=== PATIENT | male | born 1975 | race Caucasian/White ===

== ENCOUNTER 2016-11-26 10:30 | Emergency (ER) | payer OTHER ==
[2016-11-26 10:39] VITALS: BP 158/113
--- NOTE | 2016-11-26 11:16 | ER Document Report ---
ED Medical Screen (RME) - General Chief Complaint: Back Pain Stated Complaint: BACK PAIN Time Seen by Provider: 11/26/16 10:41 Mode of Arrival: Wheelchair Information source: Patient Notes: Patient is a 41yo male who presents with severe back pain x2 days. Pt states that he was walking when he tripped, caught himself, but felt a "pop, burn" sensation to the lower back. The numbness/tingling and pain travel from his low back to his LE's b/l. Pt states that he has numbness/tingling from his hips to his toes b/l. Pt has difficulty with ambulation, sitting, laying, and standing. All positions worsen his pain. No position improves his pain. He has not had any medications for his symptoms. No loss of control of b/b or urinary retention. Denies any fever, CP, sob, dyspnea, abd pain, n/v/d, dysuria , or hematuria. Denies rash or bruising. Pt has a h/o Chronic back pain s/p time in the . He denies ever having any CT/MRI performed of his low back. Consult Dr. Newberry and he recommended L-spine MRI. I have treated and performed a rapid initial assessment of this patient. A comprehensive ED assessment and evaluation of the patient, analysis of test results and completion of medical decision making process will be conducted by additional ED providers. TRAVEL OUTSIDE OF THE [place] IN LAST 30 DAYS: No - Related Data Allergies/Adverse Reactions: bacitracin [From Neosporin] Allergy (Verified 11/26/16 10:35) bacitracin zinc [From Neosporin] Allergy (Verified 11/26/16 10:35) gramicidin D [From Neosporin] Allergy (Verified 11/26/16 10:35) neomycin sulfate [From Neosporin] Allergy (Verified 11/26/16 10:35) penicillin G [Penicillin G] Allergy (Verified 11/26/16 10:35) polymyxin B [From Neosporin] Allergy (Verified 11/26/16 10:35) polymyxin B sulfate [From Neosporin] Allergy (Verified 11/26/16 10:35) Past Medical History Renal/ Medical History: Denies: Hx Peritoneal Dialysis - Immunizations Hx Diphtheria, Pertussis, Tetanus Vaccination: Yes Review of Systems - Review of Systems Constitutional: See HPI Cardiovascular: No symptoms reported Respiratory: No symptoms reported Gastrointestinal: No symptoms reported Genitourinary: No symptoms reported Male Genitourinary: No symptoms reported Musculoskeletal: See HPI Neurological/Psychological: See HPI Physical Exam - Vital signs Vitals: Temp Pulse Resp BP Pulse Ox 98.3 F 67 20 158/113 H 97 11/26/16 10:38 11/26/16 10:38 11/26/16 10:38 11/26/16 10:38 11/26/16 10:38 - Back Back: Tender Course - Vital Signs Vital signs: Temp Pulse Resp BP Pulse Ox 98.3 F 67 20 158/113 H 97 11/26/16 10:38 11/26/16 10:38 11/26/16 10:38 11/26/16 10:38 11/26/16 10:38
[2016-11-26] MEDS ORDERED: KETOROLAC TROMETHAMINE INJ/PF 30 MG/1 ML SDV IV ONE (11:24)
[2016-11-26 12:05] LABS: ABSOLUTE BASOPHILS # (AUTO) 0.1 10^3/uL (0.0-0.2); ABSOLUTE EOSINOPHILS # (AUTO) 0.1 10^3/uL (0.0-0.6); ABSOLUTE LYMPHOCYTES (AUTO) 3.3 10^3/uL (0.5-4.7); ABSOLUTE MONOCYTES (AUTO) 0.5 10^3/uL (0.1-1.4); ABSOLUTE NEUT (AUTO) 7.5 10^3/uL (1.7-8.2); BASOPHILS % (AUTO) 0.5 % (0-2); EOSINOPHILS % (AUTO) 0.9 % (0-6); HEMATOCRIT 49.4 % (37.9-51.0); HEMOGLOBIN 16.4 g/dL (13.5-17.0); HGB HCT DIFFERENCE -0.2; LYMPHOCYTES % (AUTO) 28.9 % (13-45); MEAN CORPUSCULAR HGB CONC 33.2 g/dL (32.0-36.0); MEAN CORPUSCULAR VOLUME 87 fl (80-97); MONOCYTES % (AUTO) 4.6 % (3-13); RED BLOOD COUNT 5.66 10^6/uL (4.35-5.55); RED CELL DISTRIBUTION WIDTH 13.4 % (11.5-14.0); SEGMENTED NEUTROPHILS % (AUTO) 65.1 % (42-78); WHITE BLOOD COUNT 11.5 10^3/uL (4.0-10.5)
[2016-11-26 12:51] LABS: ALANINE AMINOTRANSFERASE 19 U/L (21-72); ALBUMIN 4.5 g/dL (3.5-5.0); ALKALINE PHOSPHATASE 80 U/L (38-126); ANION GAP 9 (5-19); ASPARTATE AMINO TRANSFERASE 27 U/L (17-59); BILIRUBIN,DIRECT 0.3 mg/dL (0.0-0.4); BILIRUBIN,TOTAL 0.9 mg/dL (0.2-1.3); BLOOD UREA NITROGEN 14 mg/dL (7-20); CALCIUM 9.7 mg/dL (8.4-10.2); CARBON DIOXIDE 29 mmol/L (22-30); CHLORIDE 103 mmol/L (98-107); CREATININE RESULT 0.88 mg/dL (0.52-1.25); GLUCOSE 87 mg/dL (75-110); POTASSIUM 4.1 mmol/L (3.6-5.0); SODIUM 140.6 mmol/L (137-145); TOTAL PROTEIN 8.2 g/dL (6.3-8.2)
--- NOTE | 2016-11-26 13:28 | RADIOLOGY REPORT (SQ) ---
EXAM DESCRIPTION: MRI LUMBAR SPINE WITHOUT COMPLETED DATE/TIME: 11/26/2016 1:06 pm REASON FOR STUDY: Low back pain COMPARISON: None. TECHNIQUE: Sagittal and Axial imaging includes T1, T2, STIR and gradient echo sequences. Coronal T2/ HASTE imaging. LIMITATIONS: Patient motion. FINDINGS: VISUALIZED UPPER ABDOMEN: Limited evaluation. No acute or suspicious findings suggested. SEGMENTATION: No transitional anatomy. The lowest well-developed disc space is labeled L5-S1. ALIGNMENT: Anatomic. VERTEBRAE: Intact. BONE MARROW: Normal. No marrow replacement or reactive changes. DISC SIGNAL: Desiccation multiple levels. POSTERIOR ELEMENTS: Generally intact. No pars defect evident. HARDWARE: None in the spine. CORD AND CONUS: Normal in size and signal intensity. Conus at the appropriate level. SOFT TISSUES: No aortic aneurysm seen. No bulky retroperitoneal adenopathy or mass. No paraspinal mas s or fluid. L1-L2: No significant spinal stenosis or exit foraminal stenosis. L2-L3: Ventral impression on the thecal sac due to small right paracentral annular fissure. L3-L4: Ventral impression on thecal sac due to small right paracentral annular fissure. L4-L5: More pronounced ventral impression on the thecal sac due to small central disc protrusion. L5-S1: Ventral impression on the thecal sac due to small central annular fissure. LOWER THORACIC: Incompletely imaged. No stenosis seen. SACRUM: Visualized upper sacrum intact. OTHER: No other significant findings. IMPRESSION: Several annular fissures. Small disc herniation L4-5. TECHNICAL DOCUMENTATION: JOB ID: [id number] [employer]- All Rights Reserved
[2016-11-26] MEDS ORDERED: ONDANSETRON 4 MG TAB.RAPDIS PO ONE (14:21)
[2016-11-26] MEDS ORDERED: OXYCODONE-ACETAMINOPHEN 5-325 MG TABLET PO ONE (14:21)
--- NOTE | 2016-11-26 14:22 | ER Document Report ---
ED General - General Mode of Arrival: Wheelchair TRAVEL OUTSIDE OF THE [place] IN LAST 30 DAYS: No - HPI Onset: Other Quality of pain: Achy, Pressure, Sharp Severity: Severe Pain Level: 5 Associated symptoms: None Exacerbated by: Supine, Sitting, Standing, Movement, Walking Relieved by: Denies Similar symptoms previously: Yes Recently seen / treated by doctor: No <SANAM CARRANZA - Last Filed: 11/26/16 20:45> <OTTO SHIELDS - Last Filed: 12/01/16 03:46> - General Chief Complaint: Back Pain Stated Complaint: BACK PAIN Time Seen by Provider: 11/26/16 10:41 Notes: Patient presents to the emergency department with c/osevere back pain x2 days. Pt reports two days ago he was walking when he tripped, caught himself, but felt a "pop, burn" sensation to the lower back. The numbness/tingling and pain travel from his low back to his bilateral lower extremities. Pt c/o pain with moving, walking, sitting, any position. Reports he is severe pain no matter what position. Denies urinary or bowel incontinence/retention, denies sexual dysfunction. Reports OTC medications not helping. Denies fever, CP, sob, dyspnea, abd pain, n/v/d, dysuria, or hematuria. Denies rash or recent insect bites. Reports history of Chronic back pain but denies pain this bad. Denies cancer, denies hx of IV drug use. Has not had steroid injections. [facility]. (SANAM CARRANZA) - Related Data Allergies/Adverse Reactions: bacitracin [From Neosporin] Allergy (Verified 11/26/16 10:35) bacitracin zinc [From Neosporin] Allergy (Verified 11/26/16 10:35) gramicidin D [From Neosporin] Allergy (Verified 11/26/16 10:35) neomycin sulfate [From Neosporin] Allergy (Verified 11/26/16 10:35) penicillin G [Penicillin G] Allergy (Verified 11/26/16 10:35) polymyxin B [From Neosporin] Allergy (Verified 11/26/16 10:35) polymyxin B sulfate [From Neosporin] Allergy (Verified 11/26/16 10:35) Past Medical History - General Information source: Patient - Social History Smoking Status: Current Every Day Smoker Cigarette use (# per day): Yes Frequency of alcohol use: None Drug Abuse: None Lives with: Family Family History: Reviewed & Not Pertinent Patient has suicidal ideation: No Patient has homicidal ideation: No Renal/ Medical History: Denies: Hx Peritoneal Dialysis Traumatic Medical History: Reports: Other - chronic back pain Surgical Hx: Negative - Immunizations Hx Diphtheria, Pertussis, Tetanus Vaccination: Yes <SANAM CARRANZA - Last Filed: 11/26/16 20:45> Review of Systems <SANAM CARRANZA - Last Filed: 11/26/16 20:45> <OTTO SHIELDS - Last Filed: 12/01/16 03:46> - Review of Systems Notes: - Review HPI for review of systems., All other systems negative (SANAM CARRANZA) Physical Exam <SANAM CARRANZA - Last Filed: 11/26/16 20:45> <OTTO SHIELDS - Last Filed: 12/01/16 03:46> - Vital signs Vitals: Temp Pulse Resp BP Pulse Ox 98.3 F 67 20 158/113 H 97 11/26/16 10:38 11/26/16 10:38 11/26/16 10:38 11/26/16 10:38 11/26/16 10:38 - Notes Notes: PHYSICAL EXAMINATION: GENERAL: calm at rest, expresses severe pain with any movement HEAD: Atraumatic, normocephalic. EYES: Pupils equal round and reactive to light, extraocular movements intact, sclera anicteric, conjunctiva are normal. ENT: nares patent, oropharynx clear without exudates. Moist mucous membranes. NECK: Normal range of motion, supple without lymphadenopathy LUNGS: CTAB and equal. No wheezes rales or rhonchi. HEART: Regular rate and rhythm without murmurs BACK: No obvious deformity no step-off no erythema no warmth no swelling good distal movement and sensation ABDOMEN: Soft, no tenderness. No guarding, no rebound EXTREMITIES: Normal range of motion, no pitting edema. No cyanosis. NEUROLOGICAL: Cranial nerves grossly intact. Normal sensory/motor PSYCH: Normal mood, normal affect. SKIN: Warm, Dry, normal turgor, no rashes or lesions noted (SANAM CARRANZA) Course - Laboratory Result Diagrams: 11/26/16 11:42 11/26/16 11:42 - Diagnostic Test Radiology reviewed: Image reviewed, Reports reviewed - mri showed herniated disc <SANAM CARRANZA - Last Filed: 11/26/16 20:45> - Laboratory Result Diagrams: 11/26/16 11:42 11/26/16 11:42 <OTTO SHIELDS - Last Filed: 12/01/16 03:46> - Re-evaluation Re-evalutation: 11/26/[address] shields, advised pain medications, patient to fu with pcp. pt was instructed on MRI, instructed on treatment plan. He reports [facility], he was given a copy of his MRI. (SANAM CARRANZA) - Vital Signs Vital signs: Temp Pulse Resp BP Pulse Ox 98.3 F 67 20 158/113 H 97 11/26/16 10:38 11/26/16 10:38 11/26/16 10:38 11/26/16 10:38 11/26/16 10:38 - Laboratory Laboratory results interpreted by me: 11/26/16 11/26/16 11/26/16 11:42 11:42 13:58 WBC 11.5 H RBC 5.66 H ALT 19 L Urine Ketones 25 H Urine Urobilinogen 2.0 H Discharge <SANAM CARRANZA - Last Filed: 11/26/16 20:45> <OTTO SHIELDS - Last Filed: 12/01/16 03:46> - Discharge Clinical Impression: Elevated blood pressure reading Back pain Qualifiers: Back pain location: low back pain Chronicity: acute Back pain laterality: midline Sciatica presence: unspecified whether sciatica present Qualified Code(s ): M54.5 - Low back pain Herniated disc Qualifiers: Spinal region: lumbar Qualified Code(s): M51.26 - Other intervertebral disc displacement, lumbar region Condition: Stable Disposition: HOME, SELF-CARE Instructions: Low Back Pain ([facility]), Herniated Disc ([facility]), Oral Narcotic Medication ([facility]), Anti-Inflammatory Medication ([facility]) Additional Instructions: *You have been evaluated for back pain, herniated disc *Take medication as prescribed *Rest/Ice packs *Follow up with a primary care provider for referral as indicated to water pollution specialist *Return to ED for worsening condition, changes, needs Monitor your blood pressure. Your blood pressure was elevated today. This may be because you were anxious, in pain or because you need medication. It is important to follow up with your primary care provider for full evaluation. Prescriptions: Naproxen 500 mg PO BID #20 tablet Oxycodone HCl/Acetaminophen [Percocet 5-325 mg Tablet] 1 - 2 tab PO ASDIR PRN # 20 tablet PRN Reason: Forms: Elevated Blood Pressure, Return to Work
[2016-11-26 14:33] LABS: APPEARANCE,URINE CLEAR; BILIRUBIN,URINE NEGATIVE (NEGATIVE); GLUCOSE, URINE NEGATIVE (NEGATIVE); KETONES,URINE 25 mg/dL (NEGATIVE)
[2016-11-26 14:34] LABS: LEUKOCYTE ESTERASE,URINE NEGATIVE (NEGATIVE); NITRITE,URINE NEGATIVE (NEGATIVE); PROTEIN,URINE NEGATIVE (NEGATIVE); RBC,URINE NONE SEEN /HPF; URINE SPECIFIC GRAVITY 1.026; WBC,URINE NONE SEEN /HPF
[2016-11-26 14:57] LABS: URINE BARBITURATES SCREEN NEGATIVE; URINE METHADONE SCREEN NEGATIVE; URINE OPIATES LOW NEGATIVE; URINE PHENCYCLIDINE SCREEN NEGATIVE
== END 2016-11-26 15:03 | disposition home or self-care (01) ==
LOC: ER 10:30
DX: R03.0 Elevated blood-pressure reading, without diagnosis of hypertension (principal); G89.29 Other chronic pain; M54.5 Low back pain; M51.26 Other intervertebral disc displacement, lumbar region; R20.0 Anesthesia of skin; F17.210 Nicotine dependence, cigarettes, uncomplicated; Z88.0 Allergy status to penicillin; Z88.3 Allergy status to other anti-infective agents
CPT/HCPCS: 99284; 96374; 36415; 85025; 80053; 81001; 80307; 72148; S0119; J1885

== ENCOUNTER 2016-11-27 07:48 | Emergency (ER) | payer OTHER ==
[2016-11-27] MEDS ORDERED: MORPHINE SULFATE 10 MG/ML INJ IV ONE (08:23)
[2016-11-27] MEDS ORDERED: METHYLPREDNISOLONE INJ 125 MG/2 ML SDV IV ONE (08:24)
--- NOTE | 2016-11-27 08:26 | ER Document Report ---
ED General Pain - General Chief Complaint: Low Back Pain Stated Complaint: BACK PAIN Time Seen by Provider: 11/27/16 08:09 Mode of Arrival: Ambulatory Information source: Patient Notes: Patient is a 41-year-old male who presents to the ER today for the second time in 2 days for low back pain after he tripped and felt a pop in his low back 3 days ago. Patient does have history of chronic back pain, but states that this is different. He admits to some tingling in his right foot, but denies numbness. He did get naproxen and Percocet filled yesterday that he was prescribed from the emergency department. He says that they are not helping. He denies any bowel or bladder incontinence, sexual dysfunction, history of IV drug use, history of cancer, history of high blood pressure, any injury since 3 days ago, fever, chills. TRAVEL OUTSIDE OF THE [place] IN LAST 30 DAYS: No - Related Data Allergies/Adverse Reactions: bacitracin [From Neosporin] Allergy (Verified 11/26/16 10:35) bacitracin zinc [From Neosporin] Allergy (Verified 11/26/16 10:35) gramicidin D [From Neosporin] Allergy (Verified 11/26/16 10:35) neomycin sulfate [From Neosporin] Allergy (Verified 11/26/16 10:35) penicillin G [Penicillin G] Allergy (Verified 11/26/16 10:35) polymyxin B [From Neosporin] Allergy (Verified 11/26/16 10:35) polymyxin B sulfate [From Neosporin] Allergy (Verified 11/26/16 10:35) Past Medical History - General Information source: Patient - Social History Smoking Status: Current Every Day Smoker Family History: Reviewed & Not Pertinent Patient has suicidal ideation: No Patient has homicidal ideation: No Renal/ Medical History: Denies: Hx Peritoneal Dialysis - Immunizations Hx Diphtheria, Pertussis, Tetanus Vaccination: Yes Review of Systems - Review of Systems Constitutional: No symptoms reported EENT: No symptoms reported Cardiovascular: No symptoms reported Respiratory: No symptoms reported Gastrointestinal: No symptoms reported Genitourinary: No symptoms reported Male Genitourinary: No symptoms reported Musculoskeletal: See HPI Skin: No symptoms reported Hematologic/Lymphatic: No symptoms reported Neurological/Psychological: No symptoms reported Physical Exam - Vital signs Vitals: Temp Pulse Resp BP Pulse Ox 97.4 F 77 20 143/82 H 100 11/27/16 08:18 11/27/16 08:18 11/27/16 08:18 11/27/16 08:18 11/27/16 08:18 - Notes Notes: PHYSICAL EXAMINATION: GENERAL: uncomfortable, laying very still, but in no acute distress. HEAD: Atraumatic, normocephalic. EYES: Pupils equal round and reactive to light, extraocular movements intact, sclera anicteric, conjunctiva are normal. NECK: Normal range of motion, supple without lymphadenopathy LUNGS: CTAB and equal. No wheezes rales or rhonchi. HEART: Regular rate and rhythm without murmurs ABDOMEN: Soft, no tenderness. No guarding, no rebound BACK: lumbar vertebral tenderness, decreased ROM due to pain GI/: no CVA tenderness, normal rectal tone EXTREMITIES: straight leg test positive for pain in low back, good and equal pulses bilaterally, Normal range of motion, no pitting edema. No cyanosis. NEUROLOGICAL: Cranial nerves grossly intact. Normal sensory/motor exams. PSYCH: anxious SKIN: Warm, Dry, normal turgor, no rashes or lesions noted, skin exam normal today Course - Re-evaluation Re-evalutation: 11/27/16 10:09 pt was just seeen here yesterday and received MRI, was diagnosed with herniated disc in lumbar spine, sent home with percocet and naproxen which he states are not helping. He wants something to help with "inflammation." I did give him IV steroids here and will send him home with prednisone. I will also give him lidoderm patches and advise him on heat and ice. I have considered osteomyelitis, spinal epidural abscess, fracture, cord compression, cancer, AAA , retroperitoneal bleed, spinal epidural hematoma, and see no evidence to continue evaluation for these pathologies. - Vital Signs Vital signs: Temp Pulse Resp BP Pulse Ox 97.4 F 77 20 143/82 H 100 11/27/16 08:23 11/27/16 08:23 11/27/16 08:23 11/27/16 08:23 11/27/16 08:23 Discharge - Discharge Clinical Impression: Back pain Qualifiers: Back pain location: low back pain Chronicity: acute Back pain laterality: midline Sciatica presence: unspecified whether sciatica present Qualified Code(s ): M54.5 - Low back pain Herniated disc Qualifiers: Spinal region: lumbar Qualified Code(s): M51.26 - Other intervertebral disc displacement, lumbar region Condition: Stable Disposition: HOME, SELF-CARE Instructions: Low Back Pain ([facility]), Ice Packs ([facility]), Warm Packs ([facility]) Additional Instructions: Return immediately for any new or worsening symptoms. Follow up with ortho, call tomorrow to make followup appointment. Orthopedic Office [facility] [address] [place] [address] phone: [phone] Prescriptions: Lidocaine [Lidoderm 5% (700 mg) Transdermal Patch] 1 patch TP DAILY #10 adh..patch Prednisone [Deltasone 20 mg Tablet] 3 tab PO DAILY 10 Days Forms: Return to Work Referrals: ABBY RICCI MD [Primary Care Provider] - Follow up as needed
[2016-11-27] MEDS ORDERED: SENNOSIDES/DOCUSATE 8.6-50 MG 1 EACH TABLET PO ONE (09:17)
[2016-11-27] MEDS ORDERED: LIDOCAINE 5% (700 MG) TRANSDERMAL ADH..PATCH TP ONE (10:36)
[2016-11-27 11:00] VITALS: BP 126/73
== END 2016-11-27 11:02 | disposition home or self-care (01) ==
LOC: ER 07:48
DX: M51.26 Other intervertebral disc displacement, lumbar region (principal); M54.5 Low back pain; M54.9 Dorsalgia, unspecified; R20.0 Anesthesia of skin; F17.200 Nicotine dependence, unspecified, uncomplicated
CPT/HCPCS: 99283; 96374; 96375; J2930; J2270

== ENCOUNTER 2019-01-27 13:08 | Emergency (ER) | payer OTHER ==
--- NOTE | 2019-01-27 13:31 | ER Document Report ---
Addendum entered and electronically signed by JANUARY RODRIGUEZ MD 01/28/19 12:03: Discharge - Discharge Clinical Impression: Suicidal ideation, Depression Condition: Stable Disposition: HOME, SELF-CARE Additional Instructions: You have been evaluated both medical and behavioral teams and been deemed appropriate for discharge. Please follow-up with your outpatient mental health provider both in medication management and therapeutic services. Please continue using your support network and positive coping skills. [facility]. You have been provided a one-week prescription for both your home medication of Zyprexa 2.5mg twice daily; please take as directed. DEPRESSION: Your evaluation reveals that you have mental depression. While symptoms may be vague, they often include disturbance of sleep, fatigue, loss of appetite, and general loss of interest in life. While depression may be a side effect of drugs, or a reaction to a major change in your life, many cases have no known cause. If depression is acute, and related to a major loss in your life, you can expect it to clear completely with time. If you have been depressed a long nila e, are prone to repeated bouts of depression or low mood, or have been thinking of suicide, get help. Depression can be treated with anti-depressant medication and counselling. Long-term depression will often take a few weeks to clear, even with appropriate medication. Follow-up care is important. SUICIDAL IDEATION: Suicidal ideation is a common medical term for thoughts about suicide, which may be as detailed as a formulated plan, without the suicidal act itself. Although most people who undergo suicidal ideation do not commit suicide, some go on to make suicide attempts. The range of suicidal ideation varies greatly from fleeting to detailed planning, role playing, and unsuccessful attempts. While thoughts about suicide are common, most people do not carry out serious actions to commit suicide. Based upon your evaluation and discussion with you, we do not believe you are currently at risk to act upon your thoughts of suicide. You have agreed to return to the Emergency Department, at any time, if you feel inclined to act upon your suicidal thoughts. FOLLOW-UP CARE: If you have been referred to a physician for follow-up care, call the physicians office for an appointment as you were instructed or within the next two days. If you experience worsening or a significant change in your symptoms, notify the physician immediately or return to the Emergency Department at any time for re-evaluation. Prescriptions: Olanzapine [Zyprexa 2.5 Mg Tablet] 2.5 mg PO BID #14 tablet Referrals: [facility] [Provider Group] - Follow up as needed ABBY RICCI MD [NO LOCAL MD] - Follow up as needed Addendum entered and electronically signed by JUNE AVELAR LCSWA 01/28/19 11:45: Discharge - Discharge Clinical Impression: Suicidal ideation, Depression Condition: Stable Disposition: HOME, SELF-CARE Additional Instructions: You have been evaluated both medical and behavioral teams and been deemed appropriate for discharge. Please follow-up with your outpatient mental health provider both in medication management and therapeutic services. Please continue using your support network and positive coping skills. Please follow- up with the local [facility] to continue setting up therapeutic services. You have been provided a one-week prescription for both your home medication of Zyprexa 2.5mg twice daily; please take as directed. DEPRESSION: Your evaluation reveals that you have mental depression. While symptoms may be vague, they often include disturbance of sleep, fatigue, loss of appetite, and general loss of interest in life. While depression may be a side effect of drugs, or a reaction to a major change in your life, many cases have no known cause. If depression is acute, and related to a major loss in your life, you can expect it to clear completely with time. If you have been depressed a long time, are prone to repeated bouts of depression or low mood, or have been thinking of suicide, get help. Depression can be treated with anti-depressant medication and counselling. Long-term depression will often take a few weeks to clear, even with appropriate medication. Follow-up care is important. SUICIDAL IDEATION: Suicidal ideation is a common medical term for thoughts about suicide, which may be as detailed as a formulated plan, without the suicidal act itself. Although most people who undergo suicidal ideation do not commit suicide, some go on to make suicide attempts. The range of suicidal ideation varies greatly from fleeting to detailed planning, role playing, and unsuccessful attempts. While thoughts about suicide are common, most people do not carry out serious actions to commit suicide. Based upon your evaluation and discussion with you, we do not believe you are currently at risk to act upon your thoughts of suicide. You have agreed to return to the Emergency Department, at any time, if you feel inclined to act upon your suicidal thoughts. FOLLOW-UP CARE: If you have been referred to a physician for follow-up care, call the physicians office for an appointment as you were instructed or within the next two days. If you experience worsening or a significant change in your symptoms, notify the physician immediately or return to the Emergency Department at any time for re-evaluation. Referrals: [facility] [Provider Group] - Follow up as needed ABBY RICCI MD [NO LOCAL MD] - Follow up as needed Addendum entered and electronically signed by JUNE AVELAR LCSWA 01/28/19 11:44: Discharge - Discharge Clinical Impression: Suicidal ideation, Depression Condition: Stable Disposition: HOME, SELF-CARE Additional Instructions: You have been evaluated both medical and behavioral teams and been deemed appropriate for discharge. Please follow-up with your outpatient mental health provider both in medication management and therapeutic services. Please continue using your support network and positive coping skills. Please follow- up with the local [facility] to continue setting up therapeutic services. You have been provided a one-week prescription for both your home medications of Zyprexa and Paxil; please take as directed. DEPRESSION: Your evaluation reveals that you have mental depression. While symptoms may be vague, they often include disturbance of sleep, fatigue, loss of appetite, and general loss of interest in life. While depression may be a side effect of drugs, or a reaction to a major change in your life, many cases have no known cause. If depression is acute, and related to a major loss in your life, you can expect it to clear completely with time. If you have been depressed a long time, are prone to repeated bouts of depression or low mood, or have been thinking of suicide, get help. Depression can be treated with anti-depressant medication and counselling. Long-term depression will often take a few weeks to clear, even with appropriate medication. Follow-up care is important. SUICIDAL IDEATION: Suicidal ideation is a common medical term for thoughts about suicide, which may be as detailed as a formulated plan, without the suicidal act itself. Although most people who undergo suicidal ideation do not commit suicide, some go on to make suicide attempts. The range of suicidal ideation varies greatly from fleeting to detailed planning, role playing, and unsuccessful attempts. While thoughts about suicide are common, most people do not carry out serious actions to commit suicide. Based upon your evaluation and discussion with you, we do not believe you are currently at risk to act upon your thoughts of suicide. You have agreed to return to the Emergency Department, at any time, if you feel inclined to act upon your suicidal thoughts. FOLLOW-UP CARE: If you have been referred to a physician for follow-up care, call the physicians office for an appointment as you were instructed or within the next two days. If you experience worsening or a significant change in your symptoms, notify the physician immediately or return to the Emergency Department at any time for re-evaluation. Referrals: ABBY RICCI MD [NO LOCAL MD] - Follow up as needed [facility] [Provider Group] - Follow up as needed Original Note: ED General - General Chief Complaint: Suicidal Ideation Stated Complaint: IVC WITH PAPERS Time Seen by Provider: 01/27/19 13:16 Primary Care Provider: ABBY RICCI MD [NO LOCAL MD] - Follow up as needed TRAVEL OUTSIDE OF THE [place] IN LAST 30 DAYS: No - HPI Notes: Patient is a 43-year-old male with a history of depression who presents to the emergency department for evaluation under an IVC order. He really does not want to get the details with me. He states the last several years have been "very hard." He is currently unemployed. He is not in a relationship. He has chronic back pain issues. He has been referred to pain management, but was dismissed secondary to marijuana in his urine drug screen. The patient states that he is currently suicidal. He has tried to both shoot himself as well as overdose in the past. He states he actually took "a bunch of pills" last week. He states there was no effect from that other than vomiting. He was unsucc essful in shooting himself because the gun jammed. He denies any homicidal ideation. No visual or auditory hallucination. He [facility] 2 [facility]. He believes that 1 of them is olanzapine, 1 is Paxil, and one is a vitamin of some sort. Otherwise, the patient states he has had a diminished appetite. He is lost weight over the last several months. He states he feels worse now than he did prior to arrival. - Related Data Allergies/Adverse Reactions: bacitracin [From Neosporin] Allergy (Verified 11/26/16 10:35) bacitracin zinc [From Neosporin] Allergy (Verified 11/26/16 10:35) gramicidin D [From Neosporin] Allergy (Verified 11/26/16 10:35) neomycin sulfate [From Neosporin] Allergy (Verified 11/26/16 10:35) penicillin G [Penicillin G] Allergy (Verified 11/26/16 10:35) polymyxin B [From Neosporin] Allergy (Verified 11/26/16 10:35) polymyxin B sulfate [From Neosporin] Allergy (Verified 11/26/16 10:35) Past Medical History - General Information source: Patient - Social History Smoking Status: Current Every Day Smoker Frequency of alcohol use: Rare Drug Abuse: Marijuana Family History: Reviewed & Not Pertinent Renal/ Medical History: Denies: Hx Peritoneal Dialysis Musculoskeletal Medical History: Reports Other - Lumbar disc herniation Psychiatric Medical History: Reports: Hx Depression - Immunizations Hx Diphtheria, Pertussis, Tetanus Vaccination: Yes Review of Systems - Review of Systems Constitutional: No symptoms reported EENT: No symptoms reported Cardiovascular: No symptoms reported Respiratory: No symptoms reported Physical Exam - Notes Notes: This is a 43-year-old male who appears his stated age, in no acute distress. He has a flat depressed affect with diminished eye contact, but cooperative with examiner. Vital signs reviewed, please refer to chart. Head is normocephalic, atraumatic. Pupils equal round, reactive to light. Neck is supple without meningismus. Heart is regular rate and rhythm. Lungs are clear to auscultation bilaterally. Abdomen is soft, nontender, normoactive bowel sounds throughout. Extremities without cyanosis, clubbing. Posterior calves are nontender. Peripheral pulses are equal. Skin is warm and dry. Patient is awake, alert, neurological exam is nonfocal. Course - Re-evaluation Re-evalutation: 01/27/19 13:30 Patient presents emergency department for evaluation. He is brought in by the Emergency Response Officer's office. He is currently IVCD. Laboratory investigations ordered. Once medically cleared, psychiatric evaluation to take place. This patient is currently suicidal. He does have the means to carry this out. Agree with IVC. 01/27/19 14:37 I was notified by psych that the patient was actually [facility]. He was brought in here for evaluation. I have no reason to suspect any medical abnormalities. He actually already has a bed waiting for him in [place]. Again patient has no major medical issues, no abnormal vital signs, not expecting any significant problems. Medically cleared for transport. - Laboratory Result Diagrams: 01/27/19 13:58 01/27/19 13:58 Laboratory results interpreted by me: 01/27/19 13:58 Salicylates < 1.0 L Acetaminophen < 10 L - EKG Interpretation by Me Additional EKG results interpreted by me: 01/27/19 14:46 Sinus bradycardia. Right axis deviation. No acute ST changes concerning for ischemia or infarction. No old studies available for comparison. Discharge - Discharge Clinical Impression: Suicidal ideation, Depression Condition: Stable Disposition: PSYCH HOSP/UNIT Referrals: ABBY RICCI MD [NO LOCAL MD] - Follow up as needed
[2019-01-27 14:14] LABS: ABSOLUTE BASOPHILS # (AUTO) 0.1 10^3/uL (0.0-0.2); ABSOLUTE EOSINOPHILS # (AUTO) 0.1 10^3/uL (0.0-0.6); ABSOLUTE LYMPHOCYTES (AUTO) 2.9 10^3/uL (0.5-4.7); ABSOLUTE MONOCYTES (AUTO) 0.4 10^3/uL (0.1-1.4); ABSOLUTE NEUT (AUTO) 3.8 10^3/uL (1.7-8.2); EOSINOPHILS % (AUTO) 1.7 % (0-6); HEMATOCRIT 45.1 % (37.9-51.0); HEMOGLOBIN 15.6 g/dL (13.5-17.0); LYMPHOCYTES % (AUTO) 40.3 % (13-45); MEAN CORPUSCULAR HEMOGLOBIN 29.7 pg (27.0-33.4); MEAN CORPUSCULAR HGB CONC 34.6 g/dL (32.0-36.0); MEAN CORPUSCULAR VOLUME 86 fl (80-97); MONOCYTES % (AUTO) 5.2 % (3-13); PLATELET COUNT 258 10^3/uL (150-450); RED BLOOD COUNT 5.26 10^6/uL (4.35-5.55); SEGMENTED NEUTROPHILS % (AUTO) 51.8 % (42-78); TOTAL CELLS COUNTED % (AUTO) 100 %; WHITE BLOOD COUNT 7.3 10^3/uL (4.0-10.5)
[2019-01-27 14:19] LABS: APPEARANCE,URINE CLEAR; BILIRUBIN,URINE NEGATIVE (NEGATIVE); COLOR,URINE YELLOW; GLUCOSE, URINE NEGATIVE (NEGATIVE); KETONES,URINE NEGATIVE (NEGATIVE); LEUKOCYTE ESTERASE,URINE NEGATIVE (NEGATIVE); NITRITE,URINE NEGATIVE (NEGATIVE); PROTEIN,URINE NEGATIVE (NEGATIVE); URINE SPECIFIC GRAVITY 1.013; UROBILINOGEN,URINE NEGATIVE mg/dL (<2.0)
[2019-01-27 14:38] LABS: ALBUMIN 4.7 g/dL (3.5-5.0); ALKALINE PHOSPHATASE 70 U/L (38-126); ANION GAP 9 (5-19); ASPARTATE AMINO TRANSFERASE 23 U/L (17-59); BILIRUBIN,DIRECT 0.3 mg/dL (0.0-0.4); BILIRUBIN,TOTAL 0.6 mg/dL (0.2-1.3); BLOOD UREA NITROGEN 13 mg/dL (7-20); CARBON DIOXIDE 30 mmol/L (22-30); CHLORIDE 103 mmol/L (98-107); GLUCOSE 85 mg/dL (75-110); POTASSIUM 4.3 mmol/L (3.6-5.0); URINE AMPHETAMINES SCREEN NEGATIVE; URINE BARBITURATES SCREEN NEGATIVE; URINE BENZODIAZEPINES SCREEN NEGATIVE; URINE COCAINE SCREEN NEGATIVE; URINE MARIJUANA (THC) SCREEN UNCONFIRMED POSITIVE; URINE METHADONE SCREEN NEGATIVE; URINE PHENCYCLIDINE SCREEN NEGATIVE
[2019-01-27 14:40] LABS: ACETAMINOPHEN < 10 ug/mL (10-30); ALCOHOL < 10 mg/dL (NONE DETECTED); SALICYLATE < 1.0 mg/dL (2.0-20.0)
[2019-01-27] MEDS ORDERED: NICOTINE 21 MG/24 HR PATCH.TD24 TD ONE (15:33)
--- NOTE | 2019-01-27 16:04 | PSYCHOLOGICAL NOTE ---
Psych Note - Psych Note Date seen by psych provider: 01/27/19 Time seen by psych provider: 15:10 Psych Note: Reason for consult: IVC Consent permissions: Patient's adult daughter at bedside per patient's request Patient arrived to [facility] via [facility] department under IVC paperwork. [facility], Dr. Damon.. Dr. Donlad placed patient on full IVC with request to place an inpatient psychiatric treatment. Patient reportedly overdosed on multiple pills which resulted in him vomiting them up. He has demonstrated a downward spiral with depression as evidenced by isolating himself in his home parental patient has not left his home in over a week), unable to function for day-to-day tasks, and attempted suicide. Patient currently is demonstrating little insight into his current situation requesting to be able to leave because he has "things to do." While patient is compliant with requests and does sit on his bed patient does demonstrate psychomotor agitation with constant shifting and movement. Patient reports being in the room and here at [facility] ED is making him worse. When process was explained to the patient patient requests his daughter to drive him to the [facility] facility. When it was explained that that is not possible, the patient stated that he had some "difficulties" in the transportation with the line tender [employer] stating it took "a couple of them to bring me in." Patient is alert and orientated to person, place, time and circumstance. Mood is anxious with congruent affect. Patient confirms suicidal ideation with recent attempt at overdose. Patient denies homicidal ideation delusions are abs ent behaviors congruent with an intact reality based presentation i.e. organized linear thought process. Eye contact is fair. Conversational speech is overall within normal rate, tone and prosody. Intellectual abilities appear to be within the average range. Attention and concentration is fair. Insight, judgment, impulse control is poor. Major depressive disorder; Recurrent [facility] by the [facility] No medication recommendations at this time Impression\\Plan: Patient is recommended for continued IVC.
--- NOTE | 2019-01-27 19:02 | EKG REPORT ---
SEVERITY:- OTHERWISE NORMAL ECG - SINUS RHYTHM RIGHT AXIS DEVIATION : Confirmed by: Tomer Zimmerman MD 27-Jan-2019 19:01:07
[2019-01-28 02:42] VITALS: BP 141/85
--- NOTE | 2019-01-28 10:49 | ER Document Report ---
Doctor's Note Notes: 01/28/19 10:48 I have evaluated this pt. this am and he has no c/o at this time. He feels all of his needs are being met and his physical exam is normal. He is awaiting disposition per mental health.
== END 2019-01-28 12:21 | disposition home or self-care (01) ==
LOC: ER 13:08
DX: R45.851 Suicidal ideations (principal); F32.9 Major depressive disorder, single episode, unspecified; Z79.899 Other long term (current) drug therapy; F12.10 Cannabis abuse, uncomplicated; F17.200 Nicotine dependence, unspecified, uncomplicated; M54.9 Dorsalgia, unspecified; G89.29 Other chronic pain; Z56.0 Unemployment, unspecified; R63.0 Anorexia; R63.4 Abnormal weight loss; Z88.1 Allergy status to other antibiotic agents; Z88.3 Allergy status to other anti-infective agents; Z88.0 Allergy status to penicillin
CPT/HCPCS: 36415; 80053; 80307; 81001; 85025; 93005; 93010; 99285

== ENCOUNTER 2019-04-08 07:31 | Emergency (ER) | payer OTHER ==
[2019-04-08] MEDS ORDERED: KETOROLAC TROMETHAMINE INJ/PF 30 MG/1 ML SDV IM ONE (09:07)
--- NOTE | 2019-04-08 09:16 | ER Document Report ---
HPI - HPI Time Seen by Provider: 04/08/19 08:26 Pain Level: 4 Context: Patient is a 43-year-old male who presents to the emergency department with a chief complaint of left shoulder pain. Patient reports about a week and a half ago he fell and landed on his left forearm. Patient reports when he landed on his left forearm, his arm was lifted above his shoulder and he heard a pop. Patient reports he has been using Flexeril and naproxen which he is prescribed for his chronic back pain since then has not been helping. Patient reports he will follow-up with the [place] clinic but wanted to get evaluated quickly by the emergency department. Patient reports it feels like a constant aching around his entire left shoulder. Patient is concerned for a possible rotator cuff injury. Patient reports the pain is worse at night, worse with direct pressure, reaching, lifting, pushing and pulling. Patient reports he has attempted to keep the shoulder moving to prevent stiffness. - MUSCULOSKELETAL Musculoskeletal: REPORTS: Extremity pain - L shoulder Past Medical History - General Information source: Patient - Social History Smoking Status: Current Every Day Smoker Chew tobacco use (# tins/day): No Frequency of alcohol use: None Drug Abuse: None Lives with: Family Family History: Reviewed & Not Pertinent Patient has suicidal ideation: No Patient has homicidal ideation: No - Past Medical History Cardiac Medical History: Reports: None Pulmonary Medical History: Reports: None EENT Medical History: Reports: None Neurological Medical History: Reports: None Endocrine Medical History: Reports: None Renal/ Medical History: Reports: None. Denies: Hx Peritoneal Dialysis Malignancy Medical History: Reports None GI Medical History: Reports: None Musculoskeletal Medical History: Reports Other - Chronic back pain; on flexeril and naproxen Skin Medical History: Reports None Psychiatric Medical History: Reports: Hx Depression - Immunizations Hx Diphtheria, Pertussis, Tetanus Vaccination: Yes Vertical Provider Document - CONSTITUTIONAL Agree With Documented VS: Yes Exam Limitations: No Limitations General Appearance: Mild Distress - INFECTION CONTROL TRAVEL OUTSIDE OF THE [place] IN LAST 30 DAYS: No - HEENT HEENT: Atraumatic, Normal ENT Exam, Normocephalic - NECK Neck: Normal Inspection - RESPIRATORY Respiratory: Breath Sounds Normal, No Respiratory Distress - CARDIOVASCULAR Cardiovascular: Regular Rate, Regular Rhythm - GI/ABDOMEN Gastrointestinal: Abdomen Soft, Abdomen Non-Tender - BACK Back: Normal Inspection - MUSCULOSKELETAL/EXTREMETIES Notes: Patient has tenderness to palpation to the anterior, lateral and posterior aspect of the left shoulder. Patient is limited range of motion to the left shoulder; patient is able to lift his arm to the level of his shoulder but he reports that any further he develops pain. Patient has a strong palpable left brachial and radial pulse. Patient is able to move his left shoulder joint but reports significant pain when he attempts to externally rotate or internally rotate his arm. No obvious erythema, swelling or deformity to the left shoulder. - NEURO Level of Consciousness: Awake, Alert, Appropriate - DERM Integumentary: Warm, Dry, No Rash Course - Vital Signs Vital signs: Temp Pulse Resp BP Pulse Ox 97.8 F 59 L 18 148/86 H 100 04/08/19 07:38 04/08/19 07:38 04/08/19 07:38 04/08/19 07:38 04/08/19 07:38 - Diagnostic Test Radiology reviewed: Reports reviewed Radiology results interpreted by me: 04/08/19 10:08 Shoulder X-Ray 04/08/19 08:37 IMPRESSION: NEGATIVE STUDY OF THE LEFT SHOULDER. NO RADIOGRAPHIC EVIDENCE OF ACUTE INJURY. Discharge - Discharge Clinical Impression: Injury of left shoulder Qualifiers: Encounter type: initial encounter Qualified Code(s): S49.92XA - Unspecified injury of left shoulder and upper arm, initial encounter Condition: Stable Disposition: HOME, SELF-CARE Additional Instructions: Today you are seen in the emergency department for left shoulder pain. The x- ray was negative for any acute bony abnormality such as a fracture dislocation. You could potentially have a partial tear of the rotator cuff. If you develop severe pain that is not controlled with your medication, increased numbness, or loss of complete function of the left arm you need to seek medical attention immediately. [facility]. Use the sling for comfort. Please remove your arm from the sling multiple times per day and do range of motion exercises with the shoulder to help prevent frozen shoulder. Shoulder Injury You have injured your shoulder. This usually results from stretching or tearing of the tendons during trauma. Time and protection are required in order to heal properly. Many injuries are quite disabling, and should be taken seriously. Initial treatment includes cold packs and a sling to rest the shoulder. The physician has assessed the seriousness of your injury, and has outlined a treatment plan. Understand that this treatment may change, depending on how you progress. If a re-examination was recommended, it is important that you follow up as instructed. Some shoulder injuries (such as partial tear of the rotator cuff) are only suspected after you've failed to improve. Call us if there's severe pain, numbness, or loss of function. [facility]errals: [facility] [Primary Care Provider[facility] - Follow up as needed NANCY BE MD [ACTIVE PROVISIONAL STAFF] - Follow up as needed MONIK HUSTON MD [ACTIVE STAFF] - Follow up as needed BOZENA KHAN DO [ACTIVE STAFF] - Follow up as needed
--- NOTE | 2019-04-08 10:07 | RADIOLOGY REPORT (SQ) ---
EXAM DESCRIPTION: SHOULDER LEFT 2 OR MORE VIEWS COMPLETED DATE/TIME: 04/08/2019 9:15 am REASON FOR STUDY: left shoulder pain, fall x 1 week COMPARISON: None. NUMBER OF VIEWS: Three views. TECHNIQUE: Internal rotation, external rotation, and Y view images acquired of the left shoulder. LIMITATIONS: None. FINDINGS: MINERALIZATION: Normal. BONES: No acute fracture. No worrisome bone lesions. JOINTS: No glenohumeral dislocation. No acromioclavicular joint widening. VISUALIZED LUNGS AND RIBS: No pneumothorax. No rib fracture. SOFT TISSUES: No radiopaque foreign body. OTHER: No other significant finding. IMPRESSION: NEGATIVE STUDY OF THE LEFT SHOULDER. NO RADIOGRAPHIC EVIDENCE OF ACUTE INJURY. TECHNICAL DOCUMENTATION: JOB ID: [id number] [employer]- All Rights Reserved Reading location - IP/workstation name: [email or web address]
[2019-04-08] MEDS ORDERED: HYDROCODONE/ACETAMINOPHEN 5-325 MG (6 TAB/ER DISP) PO PRN (10:11)
[2019-04-08 10:24] VITALS: BP 142/80
== END 2019-04-08 10:20 | disposition home or self-care (01) ==
LOC: ER 07:31
DX: S49.92XA Unspecified injury of left shoulder and upper arm, initial encounter (principal); M25.512 Pain in left shoulder; W19.XXXA Unspecified fall, initial encounter; F17.200 Nicotine dependence, unspecified, uncomplicated
CPT/HCPCS: 99283; 96374; 73030; J1885

== ENCOUNTER 2019-06-04 06:14 | Emergency (ER) | payer OTHER ==
--- NOTE | 2019-06-04 09:18 | ER Document Report ---
ED Oral Problem - General Chief Complaint: Toothache Stated Complaint: LEFT SIDE LOWER JAW PAIN Time Seen by Provider: 06/04/19 09:14 Primary Care Provider: VINCENT,SANTY [Primary Care Provider] - Follow up tomorrow TRAVEL OUTSIDE OF THE [place] IN LAST 30 DAYS: No - HPI Notes: 44 year old male to the ED with C/O left lower toothache that began three days ago. States that he has been trying OTC pain meds, but it has not been helping. States that the pain has been so bad, that he has not been able to sleep. Denies fevers, chills, drooling, inability to open mouth, facial swelling. Has a plan to see a dentist this week. Admits to being a smoker. Denies any other complaints. - Related Data Allergies/Adverse Reactions: bacitracin [From Neosporin] Allergy (Verified 06/04/19 09:57) bacitracin zinc [From Neosporin] Allergy (Verified 06/04/19 09:57) gramicidin D [From Neosporin] Allergy (Verified 06/04/19 09:57) neomycin sulfate [From Neosporin] Allergy (Verified 06/04/19 09:57) penicillin G [Penicillin G] Allergy (Verified 06/04/19 09:57) polymyxin B [From Neosporin] Allergy (Verified 06/04/19 09:57) polymyxin B sulfate [From Neosporin] Allergy (Verified 06/04/19 09:57) Home Medications: hydrocodone prn dental work Past Medical History - General Information source: Patient - Social History Smoking Status: Current Every Day Smoker Frequency of alcohol use: None Drug Abuse: None Lives with: Family Family History: Reviewed & Not Pertinent Patient has suicidal ideation: No Patient has homicidal ideation: No Renal/ Medical History: Denies: Hx Peritoneal Dialysis Psychiatric Medical History: Reports: Hx Depression - Immunizations Hx Diphtheria, Pertussis, Tetanus Vaccination: Yes Review of Systems - Review of Systems Constitutional: denies: Chills, Fever EENT: See HPI, Dental problem Cardiovascular: denies: Chest pain, Palpitations, Orthopnea, Dyspnea, Syncope, Dizziness, Lightheaded Respiratory: denies: Cough, Short of breath, Wheezing Gastrointestinal: denies: Abdominal pain, Diarrhea, Nausea, Vomiting Genitourinary: No symptoms reported Male Genitourinary: No symptoms reported Musculoskeletal: No symptoms reported Skin: No symptoms reported Hematologic/Lymphatic: No symptoms reported Neurological/Psychological: No symptoms reported -: Yes All other systems reviewed and negative Physical Exam - Vital signs Vitals: Temp Pulse Resp BP Pulse Ox 97.7 F 61 16 150/100 H 100 06/04/19 06:28 06/04/19 06:28 06/04/19 06:28 06/04/19 06:28 06/04/19 06:28 Interpretation: Normal - General General appearance: Appears well, Alert In distress: None - HEENT Head: Normocephalic, Atraumatic Eyes: Normal Pupils: PERRL Ears: Normal External canal: Normal Tympanic membrane: Normal Sinus: Normal Nasal: Normal Mouth/Lips: Caries - there are multiple dental caries throughout. To the lower left tooth, numbers 17/18 are severely decayed into the gum line. They are very TTP. The gums are edematous and erythematous but there is not a zackary abscess. no Gerardo's angina, no drooling, airway is grossly intact. Pharynx: Normal. No: Potential airway comprom. Neck: Normal, Supple. No: Lymphadenopathy, Meningismus - Respiratory Respiratory status: No respiratory distress Chest status: Nontender Breath sounds: Normal. No: Rales, Rhonchi, Wheezing Chest palpation: Normal - Cardiovascular Rhythm: Regular Heart sounds: Normal auscultation Murmur: No - Abdominal Inspection: Normal Distension: No distension Bowel sounds: Normal Tenderness: Nontender Organomegaly: No organomegaly - Neurological Neuro grossly intact: Yes Cognition: Normal Orientation: AAOx4 [place] Coma Scale Eye Opening: Spontaneous [place] Coma Scale Verbal: Oriented [place] Coma Scale Motor: Obeys Commands [place] Coma Scale Total: 15 Speech: Normal Cranial nerves: Normal Cerebellar coordination: Normal Motor strength normal: LUE, RUE, LLE, RLE Additional motor exam normals: 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 Applied a dental block with Marcaine. This alleviated patient's pain quite a bit. Will disharge with small amount pain meds, Abx, and mouthwash. Encouraged to follow up with dentist. Patient agrees with the plan. - Vital Signs Vital signs: Temp Pulse Resp BP Pulse Ox 97.8 F 72 18 161/104 H 100 06/04/19 10:01 06/04/19 10:01 06/04/19 10:01 06/04/19 10:01 06/04/19 10:01 Procedures - Additional Procedures Dental Block Additional Procedures: Other - Dental block Notes: 3 mL of 1% Marcaine was insert and infiltrated into the left lower gum. There was mild bleeding. Patient tolerated it well and anesthesia was achieved. Total time of 15 minutes. Discharge - Discharge Clinical Impression: Dental caries, Toothache Condition: Stable Disposition: HOME, SELF-CARE Instructions: Clindamycin ([facility]), Toothache ([facility]) Additional Instructions: COMPLETE ALL ANTIBIOTICS; TAKE MEDICINES PRESCRIBED. FOLLOW UP WITH YOUR DENTIST TOMORROW. Prescriptions: Clindamycin HCl 300 mg PO TID #30 capsule Oxycodone HCl/Acetaminophen [Percocet 5-325 mg Tablet] 1 tab PO Q6H PRN #6 tablet PRN Reason: Chlorhexidine Gluconate [Peridex] 15 ml MM TID #420 ml [facility]errals: [facility] [Primary Care [facility]] - Follow up tomorrow
[2019-06-04 10:01] VITALS: BP 161/104
[2019-06-04] MEDS ORDERED: BUPIVACAINE HCL 0.75% INJ/PF (7.5 MG/1 ML) 10 ML SDV INJ ONE (10:04)
== END 2019-06-04 10:15 | disposition home or self-care (01) ==
LOC: ER 06:14
DX: K02.9 Dental caries, unspecified (principal); K08.89 Other specified disorders of teeth and supporting structures; R68.84 Jaw pain; F17.200 Nicotine dependence, unspecified, uncomplicated
CPT/HCPCS: 99282; J3490